=== PATIENT | female | born 2000 | race Two or more races ===

== ENCOUNTER → 2024-03-08 | Outpatient (CLI) | payer BC, MEDICAID, SELFPAY ==
[2024-03-08 16:49] LABS: Basophils % (Auto) 0 % (0-2.5); Eosinophils # (Auto) 0.1 Thou/mm3 (0.0-0.5); Eosinophils % (Auto) 2 % (0-10); Hematocrit 37.2 % (36.0-46.0); Hemoglobin 12.5 g/dL (12.0-16.0); Immature Granulocytes % (Auto) 0 % (0-0); Immature Granulocytes Auto 0.01 Thou/mm3 (0.00-0.00); Lymphocytes # (Auto) 2.3 Thou/mm3 (1.0-4.8); Lymphocytes % (Auto) 39 % (10-50); Mean Corpuscular HGB Conc 33.6 g/dl (31.0-37.0); Mean Corpuscular Hemoglobin 29.3 pg (25.0-35.0); Mean Corpuscular Volume 87 fL (80-100); Monocytes # (Auto) 0.5 Thou/mm3 (0.0-0.8); Monocytes % (Auto) 9 % (0-12); Neutrophils # (Auto) 2.9 Thou/mm3 (1.8-7.7); Neutrophils % (Auto) 49 % (37-80); Nucleated Red Blood Cell % 0 /100 WBC (0); Platelet Count 265 Thou/mm3 (140-440); RDW Standard Deviation 39.4 fL (36.4-46.3); Red Blood Count 4.26 Miln/mm3 (4.00-5.20); White Blood Count 5.9 Thou/mm3 (3.6-11.0)
== END | disposition home or self-care (01) ==
LOC: SLDO 15:11
PROVIDERS: Referring Provider Physician Assistant Medical; Visit Provider Physician Assistant Medical
DX: Z39.2 Encounter for routine postpartum follow-up (principal)
CPT/HCPCS: 36415; 85025

== ENCOUNTER → 2024-07-18 | Outpatient (CLI) | payer BC, MEDICAID, SELFPAY ==
[2024-07-20 11:20] LABS: BVAG Candida Negative (Negative); Bacterial Vaginosis Markers Positive (Negative); Candida glabrata Negative (Negative); Candida krusei PCR Negative (Negative); Trichomonas Negative (Negative)
== END | disposition home or self-care (01) ==
LOC: COPL 15:24 → SLDO 15:26
PROVIDERS: Referring Provider Physician Assistant Medical; Visit Provider Physician Assistant Medical
DX: A59.01 Trichomonal vulvovaginitis (principal); B37.89 Other sites of candidiasis; N76.0 Acute vaginitis
CPT/HCPCS: 81514

== ENCOUNTER → 2024-07-31 | Outpatient (CLI) | payer BC, MEDICAID, SELFPAY ==
[2024-07-31 15:37] LABS: Collection Type, Urine Clean Catch
[2024-07-31 16:35] LABS: Bilirubin,Urine Negative (Negative); Blood,Urine Negative (Negative); Clarity,Urine Clear (Clear/Hazy); Color,Urine Yellow (Lt Yel-Yel); Glucose, Urine Negative (Negative); Ketones,Urine Negative (Negative); Leukocyte Esterase,Urine Negative (Negative); Nitrite,Urine Negative (Negative); Protein,Urine Negative (Neg - Trace); RBC,Urine 3 /hpf (0-3); Squamous Epithelial Cell,Urine 3 /hpf (0-5); Urobilinogen,Urine Negative mg/dL (0.0-1.0); WBC,Urine 1 /hpf (0-5)
[2024-07-31 16:50] LABS: Amphetamine/Methamp Scrn,U Negative (Negative); Barbiturate Screen,Urine Negative (Negative); Benzodiazepines Screen,Urine Negative (Negative); Benzoylecgonine Screen, Ur Negative (Negative); Fentanyl Screen,Urine Negative (Negative); Opiate Screen,Urine Negative (Negative); THC Screen,Urine Negative (Negative)
== END | disposition home or self-care (01) ==
LOC: SLDO 15:16
PROVIDERS: Referring Provider Specialist; Visit Provider Specialist
DX: Z34.81 Encounter for supervision of other normal pregnancy, first trimester (principal)
CPT/HCPCS: 80307; 81001; 87086

== ENCOUNTER → 2024-08-13 | Outpatient (CLI) | payer BC, MEDICAID, SELFPAY ==
[2024-08-13 09:10] LABS: Quantiferon-TB* See Sep Rpt
[2024-08-13 10:06] LABS: Basophils % (Auto) 0 % (0-2.5); Eosinophils % (Auto) 1 % (0-10); Hematocrit 35.9 % (36.0-46.0); Hemoglobin 12.4 g/dL (12.0-16.0); Immature Granulocytes % (Auto) 0 % (0-0); Immature Granulocytes Auto 0.02 Thou/mm3 (0.00-0.00); Lymphocytes # (Auto) 1.5 Thou/mm3 (1.0-4.8); Lymphocytes % (Auto) 23 % (10-50); Mean Corpuscular HGB Conc 34.5 g/dl (31.0-37.0); Mean Corpuscular Hemoglobin 29.6 pg (25.0-35.0); Mean Corpuscular Volume 86 fL (80-100); Monocytes # (Auto) 0.3 Thou/mm3 (0.0-0.8); Monocytes % (Auto) 6 % (0-12); Neutrophils # (Auto) 4.4 Thou/mm3 (1.8-7.7); Neutrophils % (Auto) 70 % (37-80); Nucleated Red Blood Cell % 0 /100 WBC (0); Platelet Count 263 Thou/mm3 (140-440); RDW Standard Deviation 38.5 fL (36.4-46.3); Red Blood Count 4.19 Miln/mm3 (4.00-5.20); White Blood Count 6.2 Thou/mm3 (3.6-11.0)
[2024-08-13 10:15] LABS: Glucose Estimated Average 88 mg/dL (80-131); Hemoglobin A1C 4.7 % Hgb (4.8-6.0)
[2024-08-13 10:21] LABS: Creatinine (Component) 0.6 mg/dL (0.6-1.3); Glucose 90 mg/dL (74-106); eGFR > 60 See Note
[2024-08-13 10:36] LABS: Hepatitis B Surface Antigen Non Reactive (Non React); Rubella, IgG Antibody Reactive (Immune)
[2024-08-13 11:02] LABS: Beta HCG,Quantitative 162149 mIU/mL (<5.0)
[2024-08-16 07:00] LABS: HIV Ag/Ab, 4th Gen NON-REACTIVE
== END | disposition home or self-care (01) ==
LOC: COPL 08:48
PROVIDERS: PCP Family Medicine; Referring Provider Specialist; Visit Provider Specialist
DX: Z34.81 Encounter for supervision of other normal pregnancy, first trimester (principal)
CPT/HCPCS: 36415; 82565; 82947; 83036; 84702; 85025; 86480; 86762; 86850; 86900; 86901; 87340; 87389

== ENCOUNTER → 2024-12-20 | Outpatient (CLI) | payer BC, MEDICAID, SELFPAY ==
[2024-12-20 17:47] LABS: Glucose,1 Hour PP 50gm Dose 102 mg/dL (80-140)
== END | disposition home or self-care (01) ==
LOC: SLDO 15:13
PROVIDERS: PCP Physician Assistant Medical; Referring Provider Specialist; Visit Provider Specialist
DX: Z34.82 Encounter for supervision of other normal pregnancy, second trimester (principal)
CPT/HCPCS: 36415; 82950

== ENCOUNTER → 2025-01-10 | Outpatient (CLI) | payer BC, MEDICAID, SELFPAY ==
[2025-01-10 17:00] LABS: Basophils # (Auto) 0.0 Thou/mm3 (0.0-0.2); Basophils % (Auto) 0 % (0-2.5); Eosinophils # (Auto) 0.1 Thou/mm3 (0.0-0.5); Eosinophils % (Auto) 1 % (0-10); Hematocrit 35.8 % (36.0-46.0); Hemoglobin 11.5 g/dL (12.0-16.0); Immature Granulocytes Auto 0.05 Thou/mm3 (0.00-0.00); Lymphocytes # (Auto) 1.7 Thou/mm3 (1.0-4.8); Lymphocytes % (Auto) 20 % (10-50); Mean Corpuscular HGB Conc 32.1 g/dl (31.0-37.0); Mean Corpuscular Hemoglobin 29.5 pg (25.0-35.0); Mean Corpuscular Volume 92 fL (80-100); Monocytes # (Auto) 0.6 Thou/mm3 (0.0-0.8); Monocytes % (Auto) 7 % (0-12); Neutrophils # (Auto) 6.0 Thou/mm3 (1.8-7.7); Neutrophils % (Auto) 71 % (37-80); Nucleated Red Blood Cell # 0.00 Thou/mm3 (0.00-0.00); Nucleated Red Blood Cell % 0 /100 WBC (0); Platelet Count 244 Thou/mm3 (140-440); RDW Standard Deviation 40.7 fL (36.4-46.3); Red Blood Count 3.90 Miln/mm3 (4.00-5.20); White Blood Count 8.5 Thou/mm3 (3.6-11.0)
[2025-01-10 17:24] LABS: Syphilis Nonreactive (Nonreactive)
== END | disposition home or self-care (01) ==
LOC: SLDO 15:51
PROVIDERS: Referring Provider Physician Assistant Medical; Visit Provider Physician Assistant Medical
DX: Z34.83 Encounter for supervision of other normal pregnancy, third trimester (principal)
CPT/HCPCS: 36415; 85025; 86780

== ENCOUNTER → 2025-02-21 | Outpatient (CLI) | payer BC, SELFPAY ==
[2025-02-22 08:56] LABS: BVAG Candida Negative (Negative); Bacterial Vaginosis Markers Negative (Negative); Candida glabrata Negative (Negative); Candida krusei PCR Negative (Negative); Trichomonas Negative (Negative)
== END | disposition home or self-care (01) ==
LOC: SLDO 13:55
PROVIDERS: PCP Specialist; Referring Provider Physician Assistant Medical; Visit Provider Physician Assistant Medical
DX: Z34.83 Encounter for supervision of other normal pregnancy, third trimester (principal)
CPT/HCPCS: 81514

== ENCOUNTER 2025-03-13 05:30 | Inpatient (IN) | payer MEDICAID, SELFPAY ==
--- NOTE | 2025-03-08 11:02 | ESHP_ITS ---
RE: ED LAGUNAS : 2000 DATE OF ADMISSION: 03/13/2025 HISTORY OF PRESENT ILLNESS: This is a 25-year-old 3, para 2-0-0-2 with a due date of 03/20 with intrauterine at 39 weeks on March 13 who presents for a repeat delivery. She denies any leaking or bleeding. She reports a normal movement. She has occasional contractions. ALLERGIES: NO KNOWN DRUG ALLERGIES. MEDICATIONS: 1. multivitamin 1 p.o. daily. 2. Ferrous sulfate 325 mg 1 p.o. every other day. PAST MEDICAL HISTORY: Short interpregnancy interval, bicornuate uterus, iron deficiency anemia. FAMILY HISTORY: Denies. OB HISTORY: 2018, 39 weeks delivery, 5 pound 15 ounce male, breech presentation, bicornuate uterus. 2023, 37 weeks delivery, 6 pound 7 ounce female, breech presentation, premature rupture of membranes, bicornuate uterus. PAST SURGICAL HISTORY: delivery, 2018 and 2023. REVIEW OF SYSTEMS: She denies any chest pain, palpitations, cough, fever, headache, right upper quadrant pain, flank pain, shortness of breath, or lower extremity pain. PHYSICAL EXAMINATION: Blood pressure 109/68, heart rate 88, respirations 16, temperature is 98.6, weight 175 pounds. HEENT: Oropharynx and sclerae clear. Lungs: Clear to auscultation bilaterally. Heart: Regular rate and rhythm. Abdomen: Gravid, term size, old Pfannenstiel scar noted. Extremities: Nontender. Skin: No gross rashes or lesions. Neurologic: No focal deficit. ASSESSMENT AND PLAN: Intrauterine at 39 weeks on March 13, previous delivery, elective repeat delivery. PLAN: Repeat delivery. Informed consent was obtained, the patient made aware of the risk, complication, alternatives, and benefits of the proposed procedure and she agrees. DT: 10:36:32 TT: 11:01:00 Ref: [id number] - TID: [id number] MTDD
[2025-03-13] VITALS (30 sets, daily range): BP systolic 0–118; BP diastolic 0–87; PULSE 69–99; RESP 15–20; TEMP 36.3–36.8; O2SAT 95–100; BMI 32.0
[2025-03-13 06:16] LABS: Basophils # (Auto) 0.0 Thou/mm3 (0.0-0.2); Basophils % (Auto) 0 % (0-2.5); Eosinophils # (Auto) 0.1 Thou/mm3 (0.0-0.5); Eosinophils % (Auto) 1 % (0-10); Hematocrit 37.1 % (36.0-46.0); Hemoglobin 12.7 g/dL (12.0-16.0); Immature Granulocytes Auto 0.03 Thou/mm3 (0.00-0.00); Lymphocytes # (Auto) 2.6 Thou/mm3 (1.0-4.8); Lymphocytes % (Auto) 37 % (10-50); Mean Corpuscular HGB Conc 34.2 g/dl (31.0-37.0); Mean Corpuscular Hemoglobin 29.1 pg (25.0-35.0); Mean Corpuscular Volume 85 fL (80-100); Monocytes # (Auto) 0.5 Thou/mm3 (0.0-0.8); Monocytes % (Auto) 7 % (0-12); Neutrophils # (Auto) 3.9 Thou/mm3 (1.8-7.7); Neutrophils % (Auto) 55 % (37-80); Nucleated Red Blood Cell # 0.00 Thou/mm3 (0.00-0.00); Nucleated Red Blood Cell % 0 /100 WBC (0); Platelet Count 211 Thou/mm3 (140-440); RDW Standard Deviation 42.6 fL (36.4-46.3); Red Blood Count 4.37 Miln/mm3 (4.00-5.20); White Blood Count 7.1 Thou/mm3 (3.6-11.0)
[2025-03-13] MEDS: RINGERS LACTATED 1000 ML 1,000 ML 100 ML IV (06:19)
[2025-03-13 06:57] LABS: Syphilis Nonreactive (Nonreactive)
[2025-03-13] MEDS: ceFAZolin/D5W 2 GM IV 2 GM/100 ML BAG IV (07:02)
[2025-03-13] MEDS: FAMOTIDINE INJ 10 MG/ML VIAL 2 ML 20 MG IV (07:03)
[2025-03-13] MEDS: METOCLOPRAMIDE INJ 5 MG/ML VIAL 2 ML 10 MG IVP (07:03)
--- NOTE | 2025-03-13 07:34 | ESOP_ITS ---
Operative Note - SUSTAINMENT LOGISTICS ANALYST Procedure Date of procedure: 03/13/25 Procedure Performed: Repeat low-transverse section via Pfannensteil skin incision Lysis of adhesions Indication: Intrauterine at 39 weeks and 0 days Previous delivery Elective repeat delivery Malpresentation Pre-Op diagnosis: Intrauterine at 39 weeks and 0 days Previous delivery Elective repeat delivery Breech, Anjel Post-Op diagnosis: Intrauterine at 39 weeks and 0 days Previous delivery Elective repeat delivery Anjel Breech Endometriosis Anesthesia type: Spinal Procedure description: After proper informed consent was obtained and the patient was made aware of the risks, complications, alternatives and benefits of the proposed procedure she was taken to the operating room where she underwent induction of spinal anesthesia. She was prepped and draped in the usual sterile fashion. A timeout was performed.? A Pfannenstiel skin incision was made with the scalpel and carried through to the underlying layer of fascia with the Bovie. The fascia was nicked in the midline incision and the incision was extended bilaterally with the Bovie. The inferior aspect of the fascial incision was grasped with Julita clamps elevated and the underlying rectus muscle dissected off with the Bovie. The superior aspect the fascial incision was grasped with Julita clamps elevated and the underlying rectus muscle dissected off with the Bovie. The rectus muscles were in the midline. The peritoneum was grasped between 2 Elliott clamps and entered sharply with the Metzenbaum scissors. The peritoneum was extended superiorly and inferiorly with good visualization of the bladder. The vesicouterine peritoneum was incised transversely and the bladder flap created digitally. A [place] blade was inserted. A low transverse incision was made in the uterus with a scapel and the incision was extended digitally. The male 's anjel breech was noted at the low transverse incision. The hips were gently guided through the low transverse incision followed by the anterior and posterior shoulder then the after-coming head kept in the gently flexed position was delivered atraumatically. The mouth and nose were suctioned with the bulb suction. The cord was clamped after 30 second delayed cord clamping and the cord was cut.? The was handed off to the waiting Pediatric staff, cord blood was collected for lab testing. The placenta was removed complete and intact. The uterus was exteriorized and cleared of all clots and debris. The uterine incision was closed with #1-0 chromic catgut suture in a running interlocking fashion. A second layer of the same suture was used to imbricate the first layer and obtain excellent hemostasis. The vesicouterine peritoneum was closed with 2- 0 chromic catgut suture in a running fashion. The firm uterus was returned to the abdomen. The gutters were cleared of all clots and debris. The peritoneum was closed with 0 chromic catgut suture in running fashion. The rectus muscle was closed with 0 chromic catgut suture. The fascia was closed with 0 Vicryl beginning at each angle and ending in the center in a running fashion. The subcutaneous tissue was irrigated with warmed normal saline solution and found to be hemostatic. The subcutaneous tissue was closed with 2-0 chromic catgut suture in a running fashion. The skin was closed with 4-0 Monocryl. A Dermabond Prineo dressing was applied and a sterile pressure dressing was applied.? She tolerated the procedure well. Counts were correct. I discussed with the patient the nature of her condition, intraoperative findings and expectation for recovery all?questions answered. Specimen: none Estimated blood loss (ml): 400 Findings: Live infant male Apgars 8 and 9 Weight 7 lbs 2 oz Amniotic fluid clear Cephalic Uterus contained superficial endometriotic implants on the anterior and posterior serosal surface and the posterior uterosacral ligaments Ovaries contained superficial endometriotic implants both ovaries. Fallopian tubes grossly within normal limits Placenta removed complete and intact Pelvic adhesions of omentum to the anterior lower uterine segment. Complications: none Surgical staff RANJITH Osborn Dr Surgeon MICHAEL Krause Operation Date: 03/13/25 07:45 <No data on this case meets the specified criteria> Diagnosis Discharge Diagnosis (1) Pelvic adhesions: Status: Acute (2) Anjel breech presentation: Status: Acute Problem List Completed Was Problem List Reviewed/Reconciled?: Yes
--- NOTE | 2025-03-13 07:34 | PD.LDDS ---
DS: Providers Provider Date of admission: 03/13/25 05:30 Primary care physician: Mayra Vuong MD Admitting Provider: Milton Negron MD Attending Provider on Admission: Milton Negron MD Attending Provider on DC: Milton Negron MD Discharging Provider: Milton Negron MD DS: Diagnosis Problem List Completed Was Problem List Reviewed/Reconciled?: Yes Summary/Hosp Course Peripartum Data Procedures: Procedures Operation Date: 03/13/25 07:45 Actual Procedure Side Surgeon p in OB Milton Negron MD Time Spent with Patient Time attestation: Total time spent providing and/or coordinating discharge services: Exam Vital Signs Temp Pulse Resp BP Pulse Ox 98.2 F 99 17 118/62 98 03/13/25 05:52 03/13/25 05:52 03/13/25 05:52 03/13/25 05:52 03/13/25 07:27 Discharge Plan Plan Patient Disposition: HOME (Self Care) Patient condition on transfer: Stable Prescriptions/Referrals Prescriptions/Med Rec: New ibuprofen 600 mg tablet 600 mg PO Q6H PRN (Reason: pain) Qty: 30 0RF Continued Vitamin 27 mg iron- 0.8 mg Tablet 1 tab PO QDAY hydrocodone-acetaminophen [[place]] 5-325 mg tablet 1 tab PO Q6H MDD 6 PRN (Reason: pain) Qty: 30 0RF Discontinued ferrous sulfate 325 mg (65 mg iron) tablet 325 mg PO QDAY Patient Comments: Take 1 tablet by mouth every other day hydrocodone-acetaminophen 5-325 mg tablet 1 tab PO Q6H MDD 4 PRN (Reason: pain) Qty: 20 0RF Referrals: Mayra Vuogn MD [Primary Care Provider, Family Practice] Patient/Caregiver Discharge Instructions Discharge Activity: activity as tolerated Other Discharge Activity Instructions:: Follow up office 1 week. Education Materials: C Section Dc Print Language: Macedonian Stand Alone Forms: Manju Award Info., Patient Portal Info Letter Discharge Order Discharge Orders: Discharge (Routine); Ordered 03/15/25 Ordered By: Milton Negron Planned Discharge Date 03/15/25
[2025-03-13] MEDS: PROMETHAZINE INJ 25 MG in SODIUM CHLORIDE 0.9% 50 ML 102 MG IV (10:52)
[2025-03-13 14:27] LABS: Basophils # (Auto) 0.0 Thou/mm3 (0.0-0.2); Basophils % (Auto) 0 % (0-2.5); Eosinophils # (Auto) 0.0 Thou/mm3 (0.0-0.5); Eosinophils % (Auto) 0 % (0-10); Hematocrit 35.8 % (36.0-46.0); Hemoglobin 12.2 g/dL (12.0-16.0); Immature Granulocytes Auto 0.04 Thou/mm3 (0.00-0.00); Lymphocytes # (Auto) 1.3 Thou/mm3 (1.0-4.8); Lymphocytes % (Auto) 10 % (10-50); Mean Corpuscular HGB Conc 34.1 g/dl (31.0-37.0); Mean Corpuscular Hemoglobin 29.2 pg (25.0-35.0); Mean Corpuscular Volume 86 fL (80-100); Monocytes # (Auto) 0.5 Thou/mm3 (0.0-0.8); Monocytes % (Auto) 4 % (0-12); Neutrophils # (Auto) 11.9 Thou/mm3 (1.8-7.7); Neutrophils % (Auto) 86 % (37-80); Nucleated Red Blood Cell # 0.00 Thou/mm3 (0.00-0.00); Nucleated Red Blood Cell % 0 /100 WBC (0); Platelet Count 192 Thou/mm3 (140-440); RDW Standard Deviation 42.9 fL (36.4-46.3); Red Blood Count 4.18 Miln/mm3 (4.00-5.20); White Blood Count 13.7 Thou/mm3 (3.6-11.0)
[2025-03-13] MEDS: OXYTOCIN in NS 20 units 20 UNIT/1,000 ML BAG 125 UNIT IV (17:12)
[2025-03-13] MEDS: KETOROLAC INJ 30 MG/ML VIAL IVP (17:12)
[2025-03-14] VITALS: BP 100/63; PULSE 80; RESP 18; TEMP 36.9; O2SAT 96
[2025-03-14] MEDS: IBUPROFEN TAB 400 MG TABLET 800 MG PO ×3 (02:27→23:28)
[2025-03-14 04:00] VITALS: BP 99/64; PULSE 87; RESP 17; TEMP 36.6; O2SAT 97
--- NOTE | 2025-03-14 06:01 | OBDSUM_ITS ---
Data (Martines) Data Hx Section: Yes (X2) : 3 Term: 0 : 0 Livin Abortions: Spontaneous & Theraputic: 0 Delivery Data (Martines) Labor Data Induction/Augmentation Agent: None ROM date: 03/13/25 ROM time: 07:57 Amniotic membrane rupture type: Artificial Amniotic fluid description: Clear Delivery Data EDC: 03/20/25 EDC calculated by:: LMP/early US confirmation delivery date: 03/13/25 [place] delivery time: 07:58 Gestational age (weeks): 39 Gestational age (days): 0 Placenta delivery date: 03/13/25 Placenta delivery time: 07:59 Delivered by: dr ramirez Delivery nurse: oralia Altamirano nurse: marianna Disabilities Services Officer at delivery: Yes Support person(s) at delivery: fob Delivery Method Delivery method: Low Transverse Presentation: Breech Anesthesia Type Anesthesia Type: Spinal Anesthesia type: Spinal Placenta Placenta delivery description: Spontaneous Cord blood sent to lab: Yes cord blood collection: Cord Blood Type Episiotomy Episiotomy description: None EBL Estimated blood loss (ml): 400 Umbilical Cord cord description: 3 Vessels Additional Procedures Lysis of adhesions Complications Complications: None Data (Martines) Data order: 1 [place]'s gender: Male Identification band number: [id number] weight (gms): 7 lb 0.171 oz Weight (pounds): 7 lbs and 0.2 ozs [place] length: 20.28 in 1 minute: 8 5 minutes: 9
[2025-03-14 07:52] VITALS: BP 101/65; PULSE 90; RESP 18; TEMP 36.8; O2SAT 97
[2025-03-14] MEDS: ENOXAPARIN SOD INJ 40 MG/0.4 ML SYRINGE SC (09:19)
[2025-03-14] MEDS: DOCUSATE SOD 100 MG CAPSULE PO (09:19)
[2025-03-14 15:35] VITALS: BP 108/68; PULSE 88; RESP 16; TEMP 36.9; O2SAT 98
--- NOTE | 2025-03-14 17:07 | PD.LDPPPRG ---
Subjective Subjective Interval history: Patient denies any primary complaints Exam Vital Signs Temp Pulse Resp BP Pulse Ox O2 Del Method 98.4 F 88 16 108/68 98 Room Air 03/14/25 15:35 03/14/25 15:35 03/14/25 15:35 03/14/25 15:35 03/14/25 15:35 03/14/25 15:35 Routine Respiratory Exam Comments: Clear to auscultation bilaterally Routine Cardiovascular Exam Comments: Regular rate and rhythm Routine Abdominal Exam Comments: Incision clear and intact Routine Extremities Exam Comments: Nontender Objective Labs 03/13/25 14:15 Impressions Impression: Postop day #1 status post delivery Encourage ambulation support Possible discharge home tomorrow Assessment & Plan Problem List (1) Pelvic adhesions: Status: Acute (2) Conner breech presentation: Status: Acute Time Spent With Patient Time: Total time spent is greater than 50% in coordination of care (as documented) at patient's floor/unit and/or counseling patient:
[2025-03-14 20:16] VITALS: BP 107/73; PULSE 95; RESP 16; TEMP 36.9; O2SAT 98
[2025-03-15 03:48] VITALS: BP 99/65; PULSE 79; RESP 16; TEMP 36.7; O2SAT 97
--- NOTE | 2025-03-15 05:09 | ESPR_ITS ---
RE: ED LAGUNAS : 2000 DATE OF SERVICE: 02/12/2025 SUBJECTIVE: On postop day #2, patient denies any problem or complaint. OBJECTIVE: VITAL SIGNS: Blood pressure 99/65, heart rate 79, respirations 16, temperature 98.0, and pulse oximetry is 97% on room air. LUNGS: Clear to auscultation bilaterally. HEART: Regular rate and rhythm. ABDOMEN: Incision clean and intact. Fundus is firm. EXTREMITIES: Nontender. ASSESSMENT: Postop day #2, status post delivery. PLAN: Discharge home. Discharge instructions given. Follow up in the office in 1 week. DT: 04:54:31 TT: 05:07:00 Ref: [id number] - TID: [id number]
[2025-03-15 08:00] VITALS: BP 121/79; PULSE 89; RESP 18; TEMP 36.8; O2SAT 97
[2025-03-15] MEDS: ENOXAPARIN SOD INJ 40 MG/0.4 ML SYRINGE SC (08:18)
[2025-03-15] MEDS: IBUPROFEN TAB 400 MG TABLET 800 MG PO (08:19)
[2025-03-15] MEDS: DOCUSATE SOD 100 MG CAPSULE PO (08:19)
== END 2025-03-15 10:20 | disposition home or self-care (01) | DRG 560 ==
LOC: S4SX 07:31 → S4NX 08:08
PROVIDERS: Admitting Provider Specialist; PCP Family Medicine; Visit Provider Specialist
PROC: 10E0XZZ Delivery of Products of Conception, External Approach (ICD-10-PCS; CPT 59514; principal; 2025-03-13 07:30)
DX: O34.219 Maternal care for unspecified type scar from previous cesarean delivery (principal); Z37.0 Single live birth
CPT/HCPCS: 36415; 85025; 86780; 86850; 86900; 86901; 94762; A4217; A4314; A4649; J0689; J1650; J1885; J2274; J2371; J2405; J2550; J2590; J2765; J3010; J3490; J7120; A9270; J2270